=== PATIENT | male | born 1975 | race African-American/Black ===

== ENCOUNTER 2018-02-01 05:56 | Emergency (ER) | payer MEDICARE ==
[2018-02-01] MEDS ORDERED: Ketorolac Tromethamine 60 MG/2 ML VIAL ONE (06:17)
== END 2018-02-01 06:39 | disposition home or self-care (01) ==
LOC: NAV ERS 05:56
DX: K02.9 Dental caries, unspecified (principal); R51 Headache; I10 Essential (primary) hypertension; F41.9 Anxiety disorder, unspecified; F32.9 Major depressive disorder, single episode, unspecified; F17.210 Nicotine dependence, cigarettes, uncomplicated; Z79.899 Other long term (current) drug therapy
CPT/HCPCS: 96372; J1885

== ENCOUNTER 2020-06-04 01:34 | Emergency (ER) | payer MEDICARE | END 2020-06-04 02:20 | disposition home or self-care (01) | LOC: NAV ERS 01:34 | DX: K02.9 Dental caries, unspecified (principal); R51.9 Headache, unspecified; I10 Essential (primary) hypertension; F17.210 Nicotine dependence, cigarettes, uncomplicated | CPT/HCPCS: 99281 ==